=== PATIENT | male | born 1990 | race African-American/Black ===

== ENCOUNTER 2017-03-07 07:39 | Emergency (ER) | payer OTHER | END 2017-03-07 08:37 | disposition home or self-care (01) | LOC: D.ER 07:39 → EDBD 07:39 → D.ER 08:37 | DX: S61.442A Puncture wound with foreign body of left hand, initial encounter (principal); F17.200 Nicotine dependence, unspecified, uncomplicated ==

== ENCOUNTER 2018-06-20 23:24 | Emergency (ER) | payer SELFPAY ==
[~2018-06-20] VITALS: Ht 172.7 cm; Wt 64.5 kg
[2018-06-20 23:29] VITALS: Ht 172.7 cm; Wt 64.5 kg
[2018-06-21] MEDS ORDERED: CYCLOBENZAPRINE10 MG PO (01:28)
[2018-06-21] MEDS ORDERED: NAPROSYN500 MG PO (01:28)
[2018-06-21 02:09] VITALS: BP 144/101
== END 2018-06-21 02:04 | disposition home or self-care (01) ==
LOC: D.ER 23:24
DX: S16.1XXA Strain of muscle, fascia and tendon at neck level, initial encounter (principal); V43.52XA Car driver injured in collision with other type car in traffic accident, initial encounter; Y93.89 Activity, other specified; Y92.410 Unspecified street and highway as the place of occurrence of the external cause; F17.200 Nicotine dependence, unspecified, uncomplicated